=== PATIENT | female | born 1945 | race Caucasian/White ===

== ENCOUNTER 2018-08-06 07:54 | Day surgery (SDC) | payer OTHER ==
--- NOTE | 2018-08-03 09:59 | RAD REPORT ---
EXAM DESCRIPTION: RAD - Chest Pa And Lat (2 Views) - 08/03/2018 9:54 am CLINICAL HISTORY: preop Chest pain. COMPARISON: CHEST SINGLE VIEW dated 08/07/2012 FINDINGS: The lungs are clear. The heart is upper limit of normal in size. No displaced fractures. C holecystectomy clips. IMPRESSION: No acute or concerning finding suspected.
[2018-08-03 10:47] LABS: Absolute Lymphocytes (CBC) 3.2 K/uL (0.7-4.9); Absolute Monocytes 0.3 K/uL (0.1-1.3); Absolute Neutrophil 3.5 K/uL (1.8-8.0); Basophils % 0.9 % (0-1.3); Eosinophils % 2.5 % (0-4.4); Hematocrit 37.4 % (36.0-45.0); Lymphocytes % 44.6 % (15.3-44.8); MPV 9.7 fL (7.6-11.3); Monocytes % 4.3 % (3.3-12.3); RBC Red Blood Cell Count 4.54 M/uL (3.86-4.86)
[2018-08-03 10:53] LABS: Protime INR 0.93
[2018-08-03 10:56] LABS: Potassium 3.5 mmol/L (3.5-5.1)
--- OUTSIDE RECORDS SUMMARY | 2018-08-06 08:00 | XMS REPORT | Summary of Care ---
:1945 Author Name Herbie Astudillo M.D. Address [place] [facility] Unavailable , Care Team Providers Name Role Phone Herbie Astudillo M.D. Unavailable Unavailable ANNETTE ORELLANA MD Unavailable Unavailable ÁNGELA JAUREGUI [place], HERBIE Bonner Unavailable Unavailable Unavailable Unavailable Unavailable Functional Status Name Dates Details Functional status health issues are not documented Status: Name Dates Details Cognitive status health issues are not documented Status: Problems Name Dates Details Preventative health care (V70.0, Z00.00) Status: Active Symptomatic menopausal or female climacteric states (627.2, N95.1) Status: Active Acid reflux (530.81, K21.9) Status: Active Diabetic peripheral neuropathy (250.60, E11.42) Status: Active Colon polyps (211.3, K63.5) Status: Active Diabetes mellitus (250.00, E11.9) Status: Active Essential (primary) hypertension (401.9, I10) Status: Active Other hyperlipidemia (272.4, E78.49) Status: Active Medications Name Dates Details NexIUM 40 MG Oral Capsule Delayed Release TAKE ONE (1) CAPSULE(S) BY MOUTH ONCE A DAY. Quantity: 30 Refills: 5 Herbie Astudillo M.D. Start : 09-Nov-2016 Active Simvastatin 20 MG Oral Tablet TAKE 1 TABLET AT BEDTIME Quantity: 90 Refills: 3 eHrbie Astudillo M.D. Start : 17-Jul-2006 Active OneTouch UltraSoft Lancets Use 2-3 Lancets dailyAETNA RX ID# [id number] Quantity: 300 Refills: 3 Herbie Astudillo M.D. Start : 05-Jun-2007 Active metFORMIN HCl ER 500 MG Oral Tablet Extended Release 24 Hour TAKE FOUR (4) TABLET(S) BY MOUTH ONCE A DAY. Quantity: 360 Refills: 0 Herbie Astudillo M.D. Start : 30-May-2018 Active Calcium 600+D TABS TAKE 2 TABLET DAILY Refills: 0 R.N. Start : 11-Jul-2007 Active Aspirin 81 MG Oral Tablet Chewable USE DIRECTED. Refills: 0 R.N. Start : 10-Oct-2008 Active Multi For Her TABS Refills: 0 R.N. Start : 10-Oct-2008 Active Gabapentin 300 MG Oral Capsule TAKE ONE (1) CAPSULE(S) BY MOUTH TWICE A DAY. Quantity: 180 Refills: 0 Herbie Astudillo M.D. Start : 09-Jul-2018 Active Xalatan 0.005 % Ophthalmic Solution INSTILL 1 DROP IN BOTH EYES AT BEDTIME. Refills: 0 R.N. Start : 09-Mar-2012 Active OneTouch Delica Lancets 33G TEST TWO TO THREE (2 TO 3) TIMES PER DAY DIRECTED. Quantity: 2 Refills: 3 Herbie Astudillo M.D. Start : 24-Apr-2017 Active 100 Unit Box glipiZIDE ER 2.5 MG Oral Tablet Extended Release 24 Hour TAKE ONE (1) TABLET(S) BY MOUTH DAILY DIRECTED. Quantity: 90 Refills: 2 Herbie Atsudillo M.D. Start : 02-Sep-2013 Active Timolol Maleate 0.25 % Ophthalmic Solution INSTILL 1 DROP IN BOTH EYES EVERY 12 HOURS DAILY. Refills: 0 R.N. Start : 20-Nov-2013 Active OneTouch Verio In Vitro Strip USE 1 STRIP DAILY Quantity: 1 Refills: 4 Herbie Astudillo M.D. Start : 23-Oct-2015 Active 50 Strip Box OneTouch Verio In Vitro Strip USE ONCE A DAY. Quantity: 1 Refills: 2 Herbie Astudillo M.D. Start : 28-Jun-2018 Active 100 Strip Box Losartan Potassium-HCTZ 50-12.5 MG Oral Tablet TAKE ONE (1) TABLET(S) BY MOUTH ONCE A DAY. Quantity: 90 Refills: 0 Herbie Astudillo M.D. Start : 11-Dec-2017 Active Allergies and Adverse Reactions Name Dates Details Invokana TABS (Allergy) Status: Active Sulfa Drugs (Allergy) Status: Active Tolmetin Sodium CAPS (Allergy) Status: Active Past Medical History Name Dates Details History of Diabetes mellitus (250.00, E11.9) Status: Resolved History of esophageal reflux (V12.79, Z87.19) Status: Resolved Procedures Procedure Dates Details Procedures not documented Immunization Name Dates Details Influenza #1 on: 13-Jan-2006 Lot #: [id number] Influenza on: 10-Jan-2007 Lot #: [id number] Influenza #1 on: 18-Dec-2009 Lot #: [id number] Influenza on: 14-Apr-2015 Lot #: [id number] Social History Name Dates Details - Status: Name Dates Details Never smoker Vital Signs Date Test Result Details No Known Vitals to report Results Date Description Value Details :15 [[facility]] LIPID PANEL CHOLESTEROL, TOTAL 164 mg/dl (Normal) Range: <200 Comments: SPECIMEN RECEIVED DATE AND TIME: HDL CHOLESTEROL 52 mg/dl (Normal) Range: >50 Comments: SPECIMEN RECEIVED DATE AND TIME: TRIGLYCERIDES 165 mg/dl (Above high Range: <150 threshold) Comments: SPECIMEN RECEIVED DATE AND TIME: LDL-CHOLESTEROL 86 {MG/DL__CAL} (Normal) Comments: Reference range: <100 Desirable range <100 mg/dL for primary prevention; <70 mg/dL for patients with CHD or diabetic patients with > or=2 CHD risk factors. LDL-C is now calculated using the Jaskaran-Natalia calculation, which is a validated novel method providing better accuracy than the Friedewald equation in the estimation of LDL-C. Jaskaran SS et al. CONCEPCION. 2013;310(19): 7011-5797 (http://e ducation.Why Not Give Back/faq/PRO900)SPECIMEN RECEIVED DATE AND TIME : CHOL/HDLC RATIO 3.2 {CALC} (Normal) Range: <5.0 Comments: SPECIMEN RECEIVED DATE AND TIME: NON HDL CHOLESTEROL 112 {MG/DL__CAL} (Normal) Range: <130 Comments: For patients with diabetes plus 1 major ASCVD risk factor, treating to a non-HDL-C goal of <100 mg/dL (LDL-C of <70 mg/dL) is considered a therapeutic option.SPECIMEN RECEIVED DATE AND TIME: :15 [[facility]] MICROALBUMIN, RANDOM URINE Comments: Reference RangeNot established (W/CREATININE) CREATININE, RANDOM URINE 191 mg/dl (Normal) Range: 20-275 Comments: SPECIMEN RECEIVED DATE AND TIME: MICROALBUMIN 1.2 mg/dl (Normal) Comments: Reference RangeNot established MICROALBUMIN/CREATININE 6 {MCG/MG_CRE} (Normal) Range: <30 RATIO, RANDOM URINE Comments: The ADA defines abnormalities in albuminexcretion as follows: Category Result (mcg/mg creatinine) Normal <30Microalbuminuria 30-299 Clinical albuminuria > OR=3 00 The ADA recommends that at least two of threespecimens collected within a 3-6 month period beabnormal before considering a patient to bewithin a diagnostic category.SPECIMEN RECEIVED DATE AND TIME: [id number] 02-Aug-20189:15 [[facility]] CMP W/EGFR GLUCOSE 158 mg/dl (Above high Range: 65-99 threshold) Comments: Fasting reference interval For someone without known diabetes, a glucosevalue >125 mg/dL indicates that they may havediabetes and this should be confirmed with afollow-up test. UREA NITROGEN (BUN) 15 mg/dl (Normal) Range: 7-25 CREATININE 0.82 mg/dl (Normal) Range: 0.60-0.93 Comments: For patients >49 years of age, the reference limitfor Creatinine is approximately 13% higher for peopleidentified as -[place]. eGFR NON- 71 {ML/MIN/1.7} (Normal) Range: > OR=60 eGFR 83 {ML/MIN/1.7} (Normal) Range: > OR=60 BUN/CREATININE RATIO NOT APPLICABLE {CALC} Range: 6-22 SODIUM 138 mmol/L (Normal) Range: 135-146 POTASSIUM 3.8 mmol/L (Normal) Range: 3.5-5.3 CHLORIDE 97 mmol/L (Below low Range: 98-110 threshold) CARBON DIOXIDE 28 mmol/L (Normal) Range: 20-32 CALCIUM 9.4 mg/dl (Normal) Range: 8.6-10.4 PROTEIN, TOTAL 6.6 g/dl (Normal) Range: 6.1-8.1 ALBUMIN 3.9 g/dl (Normal) Range: 3.6-5.1 GLOBULIN 2.7 {G/DL__CALC} (Normal) Range: 1.9-3.7 ALBUMIN/GLOBULIN RATIO 1.4 {CALC} (Normal) Range: 1.0-2.5 BILIRUBIN, TOTAL 0.5 mg/dl (Normal) Range: 0.2-1.2 ALKALINE PHSPHATASE 50 u/l (Normal) Range: 33-130 AST 24 u/l (Normal) Range: 10-35 ALT 24 u/l (Normal) Range: 6-29 Comments: SPECIMEN RECEIVED DATE AND TIME: :15 [[facility]] CBC (INCLUDES DIFF/PLT) WHITE BLOOD CELL COUNT 6.9 {Thousand/u} (Normal) Range: 3.8-10.8 RED BLOOD CELL COUNT 4.78 {Million/uL} (Normal) Range: 3.80-5.10 HEMAGLOBIN 12.4 g/dl (Normal) Range: 11.7-15.5 HEMATOCRIT 39.2 % (Normal) Range: 35.0-45.0 MCV 82.0 fL (Normal) Range: 80.0-100.0 MCH 25.9 pg (Below low threshold) Range: 27.0-33.0 MCHC 31.6 g/dl (Below low Range: 32.0-36.0 threshold) RDW 13.7 % (Normal) Range: 11.0-15.0 PLATELET COUNT 255 {Thousand/u} (Normal) Range: 140-400 MPV 11.6 fL (Normal) Range: 7.5-12.5 ABSOLUTE NEUTROPHILS 3422 {cells/uL} (Normal) Range: 5297-1112 ABSOLUTE LYMPHOCYTES 2933 {cells/uL} (Normal) Range: 850-3900 ABSOLUTE MONOCYTES 352 {cells/uL} (Normal) Range: 200-950 ABSOLUTE EOSINOPHILS 152 {cells/uL} (Normal) Range: 15-500 ABSOLUTE BASOPHILS 41 {cells/uL} (Normal) Range: 0-200 NEUTROPHILS 49.6 % (Normal) LYMPHOCYTES 42.5 % (Normal) MONOCYTES 5.1 % (Normal) EOSINOPHILS 2.2 % (Normal) BASOPHILS 0.6 % (Normal) Comments: SPECIMEN RECEIVED DATE AND TIME: [[facility]] T4, FREE T4, FREE 1.4 ng/dl (Normal) Range: 0.8-1.8 Comments: SPECIMEN RECEIVED DATE AND TIME: 15 [[facility]] TSH, 3RD GENERATION Comments: REPORT COMMENT:FASTING:YES TSH 1.40 {MIU/L} (Normal) Range: 0.40-4.50 Comments: SPECIMEN RECEIVED DATE AND TIME: [id number] Plan of Care Name Dates Details Planned Observations Planned Goals not documented Planned Encounters Appointment; Herbie Astudillo M.D. On: 10-Aug-2018 9:15 Instructions Name Dates Details Instructions not documented Encounters Appointment; Herbie Astudillo M.D. On: 21-Oct-2016 10:45 Encounter Diagnosis: Problem not documented Appointment; Herbie Astudillo M.D. On: 21-Oct-2016 13:00 Encounter Diagnosis: Problem not documented Appointment; Herbie Asutdillo M.D. On: 21-Apr-2017 10:45 Encounter Diagnosis: Problem not documented Appointment; Herbie Astudillo M.D. On: 01-Sep-2017 10:45 Encounter Diagnosis: Problem not documented Appointment; Herbie Astudillo M.D. On: 02-Mar-2018 10:45 Encounter Diagnosis: Problem not documented Appointment; Herbie Astudillo M.D. On: 20-Apr-2018 9:15 Encounter Diagnosis: Problem not documented
[2018-08-06] MEDS ORDERED: NA CHLORIDE 0.9% 500 ML ONE (08:46)
[2018-08-06] MEDS ORDERED: FENTANYL CITR 100 MCG/2 ML ONE (09:20)
[2018-08-06] MEDS ORDERED: NA CHLORIDE 0.9% 50 ML ONE (09:20)
[2018-08-06] MEDS ORDERED: MIDAZOLAM HCL 2 MG/2 ML INJ ONE (09:20)
[2018-08-06] MEDS ORDERED: ATROPINE SULF 1 MG/10 ML SYR IV ONE (09:20)
[2018-08-06] MEDS ORDERED: HEPA 1000U/500MLS 2,000 UNIT/1,000 ML BAG IV ONE (09:21)
[2018-08-06] MEDS ORDERED: NITROGLYCERIN 100 MCG/ML SYR (for cath lab use only) IV ONE (09:21)
[2018-08-06] MEDS ORDERED: HEPARIN 5000 UNIT/ML 1 ML VIAL ONE (09:21)
[2018-08-06] MEDS ORDERED: NICARDIPINE HCL 25 MG/10 ML IV ONE (09:21)
[2018-08-06] MEDS ORDERED: LIDOCAINE 1% MPF 30 ML VIAL ONE (09:51)
[2018-08-06] MEDS ORDERED: METOPROLOL TARTRATE 5 MG/5 ML INJ IV ONE (10:11)
[2018-08-06] MEDS ORDERED: ASPIRIN 81 MG CHEWABLE TABLET ONE (10:30)
[2018-08-06] MEDS ORDERED: PRASUGREL (EFFIENT) 10 MG TAB ONE (10:31)
[2018-08-06] MEDS ORDERED: ZOLPIDEM TARTRATE 5 MG TABLET PO PRN (10:38)
[2018-08-06] MEDS ORDERED: GLUCAGON 1 MG/VIAL IM PRN (10:40)
[2018-08-06] MEDS ORDERED: D50W 25 GM/50 ML SYRINGE IV PRN (10:40)
[2018-08-06] MEDS: INSULIN -REGULAR HUMAN 50 UNIT/0.5 ML ML SQ SCH ×3 (11:59→20:44)
[2018-08-06] MEDS ORDERED: NA CHLORIDE 0.9% 1,000 ML IV SCH (13:00)
[2018-08-06] MEDS ORDERED: ACETAMINOPHEN 325 MG TABLET PO PRN (13:00)
[2018-08-06] MEDS ORDERED: NITROGLYCERIN 0.4 MG/TAB SL PRN (13:00)
[2018-08-06 13:54] VITALS: BMI 30.4
[2018-08-06] MEDS: GABAPENTIN 300 MG CAP PO SCH (20:44)
[2018-08-06] MEDS ORDERED: ATORVASTATIN 80 MG TAB PO SCH (21:00)
--- NOTE | 2018-08-06 21:42 | OP ---
Surgeon: Gilberto Rushing MD Automotive Lot Attendant: Yuly Romero. Family Doctor: Colin Ramos MD. Procedure: Left heart catheterization with coronary angiography and percutaneous coronary angioplast y with stent of a distal LAD 99% stenosis successful. Procedure Findings: The patient had evidence of unstable angina. Gave us informed consent. She was brought to the cardiac cathode builder in a fasting state. The findings are that she had mild CAD througho ut all her arteries. The arteries were very small. Left ventricular ejection fraction was normal, b ut there was apical hypokinesis on left ventricular angiography and within the LAD, there was a 99% d istal LAD stenosis after the second diagonal. After stenting, there was no residual stenosis. Procedure In Detail: The patient was brought to the cardiac cathode builder in a fasting state, sedated wit h Versed, fentanyl, prepared and draped in usual sterile fashion. Right radial approach was used. R ight radial artery entered with a 21-gauge needle, cannulated with a 0.021 inch diameter guidewire. A Terumo 6-Romansh sheath used. It was flushed and radial cocktail was given. We used 1% lidocaine t o anesthetize the skin around the right radial artery. We used a TIG catheter guided into the ascend ing aorta using a Terumo Glidewire fluoroscopy. We angiogram left ventricle, right coronary, left co ronary with this. We exchanged for an XBLAD 3.5 with side holes over an exchange length J-wire. We were able to cannulate the left main ostium nicely, it gave good support. We pre-dilated the lesion after crossing it with the Sacul wire with a 2.5 x 12 emerge. We then stented with a 2.5 x 16 Syner gy stent. The angiographic result was excellent. All balloons and wires were removed from the arter ies. Pictures were taken in orthogonal views and we removed the guide catheter, removed the sheath, and closed the arteriotomy using a TR band. Complications From The Procedure: None. Estimated Blood Loss: 20 cc. MADDY/KRZYSZTOF Voice ID: [id number] Report ID: [id number]
[2018-08-07 03:59] VITALS: O2SAT 99
[2018-08-07 05:59] LABS: Hematocrit 35.2 % (36.0-45.0); MPV 9.3 fL (7.6-11.3); RBC Red Blood Cell Count 4.31 M/uL (3.86-4.86)
[2018-08-07 06:14] LABS: Potassium 3.2 mmol/L (3.5-5.1)
[2018-08-07] MEDS ORDERED: PANTOPRAZOLE 40MG TABLET PO SCH (06:30)
[2018-08-07] MEDS ORDERED: POTASSIUM CL SA 10 MEQ TAB PO ONE (07:16)
[2018-08-07] MEDS: INSULIN -REGULAR HUMAN 50 UNIT/0.5 ML ML SQ SCH (07:30)
[2018-08-07] MEDS: GABAPENTIN 300 MG CAP PO SCH (07:50)
[2018-08-07] MEDS ORDERED: glipiZIDE 5 MG TAB PO SCH (08:00)
[2018-08-07 08:06] LABS: Urine Appearance CLEAR; Urine Bilirubin NEGATIVE (NEG); Urine Blood NEGATIVE (NEG); Urine Color YELLOW; Urine Glucose NEGATIVE (NEG); Urine Protein NEGATIVE (NEG); Urine Urobilinogen 0.2 mg/dL (0.2-1.0)
[2018-08-07 08:13] LABS: Urine Microscopic Reflex NO UMIC
[2018-08-07] MEDS ORDERED: CLOPIDOGREL 75 MG TABLET PO SCH (09:00)
[2018-08-07] MEDS ORDERED: hydroCHLOROthiazide 25 MG TAB PO SCH (09:00)
[2018-08-07] MEDS ORDERED: ASPIRIN EC 81 MG TAB PO SCH (09:00)
[2018-08-07] MEDS ORDERED: LOSARTAN POTASSIUM 50 MG TABLET PO SCH (09:00)
[2018-08-07 09:24] VITALS: BP 145/72; TEMP 98.3
--- NOTE | 2018-08-08 06:02 | DS ---
Date of Discharge: 08/07/2018 Discharge Diagnosis: Unstable angina pectoris due to 99% distal LAD stenosis, successfully treated with a stent. Secondary Diagnoses: Diabetes, hypertension, dyslipidemia. Medications On Discharge: Lipitor 80 mg once per day; aspirin 81 mg once per day; Plavix 75 mg once per day; Protonix 40 mg per day; metformin 1000 mg b.i.d. , but that will not start until August 09; gabapentin 300 b.i.d.; calcium citrate ; losartan 100 mg; hydrochlorothiazide 25 mg; timolol maleate eye drops; glipizide 2.5 mg daily. Followup: Will be in 2 weeks. Diet: Low-saturated fat, low-carbohydrate diet. Activity: Ad-luly, except no lifting more than 5 pounds with the right hand. Procedures In The Hospital: Left heart catheterization with coronary angiography,left ventricular angiography and percutaneous coronary angioplasty with stent of the distal LAD stenosis segment. STAN Voice ID: [id number] Report ID: [id number] ARMAAN
== END 2018-08-07 11:40 | disposition home or self-care (01) ==
LOC: CCL 07:54 → 4TH 10:33 → CCL 08-07 11:40
PROVIDERS: ATTEND Internal Medicine
DX: I25.110 Atherosclerotic heart disease of native coronary artery with unstable angina pectoris (principal); I10 Essential (primary) hypertension; E78.2 Mixed hyperlipidemia; E11.9 Type 2 diabetes mellitus without complications; Z88.2 Allergy status to sulfonamides; Z88.8 Allergy status to other drugs, medicaments and biological substances
CPT/HCPCS: 85025; 80048 ×2; 36415 ×2; 85610; 82962 ×6; 85347; 85730; 81003; 85027; 71046; 93458; C1893; C1725; C1877; C9600; J1644; J2250; J3010; J0583

== ENCOUNTER 2019-01-01 09:05 | Day surgery (SDC) | payer OTHER ==
[2019-01-01] MEDS ORDERED: NA CHLORIDE 0.9% 1,000 ML ONE (09:13)
[2019-01-01] MEDS ORDERED: PROPOFOL 200 MG/20 ML VIAL IV ONE (10:43)
--- NOTE | 2019-01-01 11:58 | ENDO RPT ---
[address], [address] EGD PROCEDURE REPORT EXAM DATE: 01/01/2019 PATIENT NAME: Queenie Tucker MR#: [id number] BIRTHDATE: 1945 ATTENDING: Karthikeyan Chen Dr STATUS: outpatient [employer] MATERIAL: Jay Gillis RN, Izzy Weaver, and Yara Sawyer RN INDICATIONS: The patient is a 73 yr old Female here for an EGD due to iron deficiency anemia, bloating, dyspepsia, and heartburn PROCEDURE PERFORMED: EGD with biopsy MEDICATIONS: Per Anesthesia. TOPICAL ANESTHETIC: none CONSENT: The patient understands the risks and benefits of the procedure and understands that these risks include, but are not limited to: sedation, allergic reaction, infection, perforation and/or bleeding. Alternative means of evaluation and treatment include, among others: physical exam, x-rays, and/or surgical intervention. The patient elects to proceed with this endoscopic procedure. DESCRIPTION OF PROCEDURE: During intra-op preparation period all mechanical medical equipment was checked for proper function. Hand hygiene and appropriate measures for infection prevention was taken. Procedure, possible complications, and alternatives including but not limited to the possibility of bleeding, perforation, tear, infection, sepsis, need for surgery, need for blood transfusion, and anesthesia related complications were explained to the patient. After the risks, benefits and alternatives of the procedure were thoroughly explained, Informed consent was verified, confirmed and timeout was successfully executed by the treatment team. The patient was placed in the left lateral position. The patient was anesthetized with topical anesthesia. Through the anesthetized oropharyngeal area, the scope was passed without any difficulty. The [id number] ([id number]) endoscope was introduced through the mouth and advanced to the second portion of the duodenum. Retroflexed views revealed a small hiatal hernia. The gastroscope was then slowly withdrawn and removed. A small hiatal hernia was found Mild gastritis was found in the body of the stomach. Multiple biopsies were obtained and sent to pathology. Notching of the small bowel folds was found in the descending duodenum. Multiple biopsies were obtained and sent to pathology. 6 mm flat white polyp was found in the descending duodenum. With jumbo forceps, a biopsy was obtained and sent to pathology. ADVERSE EVENTS: There were no complications. IMPRESSIONS: 1. Small hiatal hernia 2. Mild gastritis in the body of the stomach, s/p biopsy 3. Notching of the small bowel folds in the descending duodenum, s/p biopsies (limited due to patient on ASA/Plavix) 4. 6 mm flat white polyp in the descending duodenum, s/p biopsy RECOMMENDATIONS: 1. await biopsy results 2. acid suppression therapy REPEAT EXAM: Karthikeyan Chen Dr eSigned: Karthikeyan Chen Dr 01/01/2019 11:57 AM cc: Colin Ramos CPT CODES: ICD9 CODES: PATIENT NAME: Queenie Tucker MR#: [id number]
[2019-01-01 12:40] VITALS: O2SAT 97
[2019-01-01 12:41] VITALS: BP 141/55; TEMP 97.7
--- NOTE | 2019-01-01 15:00 | RAD REPORT ---
EXAM DESCRIPTION: RAD - Small Bowel Series - 01/01/2019 2:55 pm CLINICAL HISTORY: s/p egd Abdominal pain COMPARISON: No comparisons FINDINGS: Hospital Fellow film shows a nonspecific bowel gas pattern. No obstruction or free air. No suspiciou s calcifications. Cholecystectomy clips. Gastric size and mucosal fold pattern are normal. No delay in transit of contrast into the small josh l. Small bowel is normal in diameter with no mucosal fold thickening. No intrinsic or extrinsic mass identifiable. Terminal ileum has normal appearance. Transit time to the colon is normal. No fluoroscopy was performed. Total images acquired: 9 IMPRESSION: Normal small bowel series.
== END 2019-01-01 14:50 | disposition home or self-care (01) ==
LOC: OR 09:05
PROVIDERS: ATTEND Internal Medicine Gastroenterology
PROC: 0DB68ZX Excision of Stomach, Via Natural or Artificial Opening Endoscopic, Diagnostic (ICD-10-PCS; 2019-01-01)
PROC: 0DB98ZX Excision of Duodenum, Via Natural or Artificial Opening Endoscopic, Diagnostic (ICD-10-PCS; principal; 2019-01-01 11:15)
DX: K29.50 Unspecified chronic gastritis without bleeding (principal); D13.2 Benign neoplasm of duodenum; K44.9 Diaphragmatic hernia without obstruction or gangrene; K21.9 Gastro-esophageal reflux disease without esophagitis; D50.9 Iron deficiency anemia, unspecified; E11.9 Type 2 diabetes mellitus without complications; I10 Essential (primary) hypertension; H40.9 Unspecified glaucoma; Z86.010 Personal history of colon polyps; Z79.82 Long term (current) use of aspirin; Z79.02 Long term (current) use of antithrombotics/antiplatelets; Z88.2 Allergy status to sulfonamides; Z90.710 Acquired absence of both cervix and uterus
CPT/HCPCS: 36415; 88312; 82962; 88305; 74250; 43239; J2704; J7030

== ENCOUNTER 2021-10-03 13:02 | Emergency (ER) | payer OTHER ==
--- NOTE | 2021-10-03 14:14 | RAD REPORT ---
EXAM DESCRIPTION: RAD - Hand Right 3 View - 10/03/2021 2:06 pm CLINICAL HISTORY: PAIN COMPARISON: No comparisons FINDINGS: Disc space narrowing with multiple small erosions are present particularly notable in the DIP joints of the fingers. The MCP joint involvement is also present with small erosive changes also present in the carpal bones. The findings favor inflammatory arthropathy. No acute fracture or sublux ation.
--- NOTE | 2021-10-03 14:30 | EDPHYS ---
Physician Documentation [facility] Name: Queenie Tucker Age: 75 yrs Sex: Female : 1945 Arrival Date: 10/03/2021 Time: 13:05 Bed 12 Private MD: Colin Ramos T ED Physician Aron Rodriguez HPI: 10/03 13:28 This 75 yrs old Female presents to ER via Ambulatory with complaints of Hand Swelling. kb 13:28 The patient or guardian reports pain, swelling, tenderness. The complaints affect the kb right hand. Context: The problem was sustained outdoors, resulted from a fall, while walking. Onset: The symptoms/episode began/occurred yesterday. Modifying factors: The symptoms are alleviated by nothing, the symptoms are aggravated by movement. Associated signs and symptoms: The patient has no apparent associated signs or symptoms. Severity of symptoms: At their worst the symptoms were moderate, in the emergency department the symptoms are unchanged. The patient has not experienced similar symptoms in the past. The patient has not recently seen a physician. Pt states she was camping and fell on Monday. Comes in today for pain, swelling and redness to right hand. Historical: - Allergies: 13:14 tolmetin; iw - PMHx: 13:14 Hypertensive disorder; Diabetes mellitus; iw - PSHx: 13:14 heart stent; iw 13:15 section; hysterectomy; iw - Immunization history:: Adult Immunizations up to date. - Social history:: Smoking status: . ROS: 13:26 Constitutional: Negative for fever, chills, and weight loss. kb 13:26 MS/extremity: Positive for erythema, pain, swelling, tenderness, of the right hand. 13:26 All other systems are negative. Exam: 13:26 Constitutional: This is a well developed, well nourished patient who is awake, alert, kb and in no acute distress. Head/Face: Normocephalic, atraumatic. ENT: Moist Mucous membranes Respiratory: Respirations even and unlabored. No increased work of breathing. Talking in full sentences Neuro: Awake and alert, GCS 15, oriented to person, place, time, and situation. Moves all extremities. Normal gait. Psych: Awake, alert, with orientation to person, place and time. Behavior, mood, and affect are within normal limits. 13:26 Musculoskeletal/extremity: Extremities: grossly normal except: noted in the right hand: erythema, pain, swelling, tenderness, ROM: intact in all extremities, Circulation is intact in all extremities. Sensation intact. 13:26 Skin: cellulitis, that is mild, on the right hand. Vital Signs: 13:12 BP 120 / 86; Pulse 99; Resp 16 S; Temp 98.0; Pulse Ox 97% on R/A; Weight 72.57 kg; iw Height 5 ft. 3 in. (160.02 cm); 13:26 BP 118 / 57; Pulse 92; Resp 18; Temp 97.6(T); Pulse Ox 98% on R/A; Pain 10/10; eh3 14:47 BP 128 / 58; Pulse 76; Resp 20; Pulse Ox 100% on R/A; bh1 13:12 Body Mass Index 28.34 (72.57 kg, 160.02 cm) iw MDM: 13:11 Patient medically screened. kb 13:28 Data reviewed: vital signs, nurses notes. Data interpreted: Pulse oximetry: on room air kb is 97 %. Interpretation: normal. 14:26 ED course: No puncture or other open wound to right hand. kb 14:29 Data reviewed: I have discussed the patient's presentation/case with the attending Emergency Department Physician;. Counseling: I had a detailed discussion with the patient and/or guardian regarding: the historical points, exam findings, and any diagnostic results supporting the discharge/admit diagnosis, radiology results, the need for outpatient follow up, a family practitioner, to return to the emergency department if symptoms worsen or persist or if there are any questions or concerns that arise at home. 10/03 13:14 Order name: Hand Right 3 View XRAY; Complete Time: 14:15 kb Administered Medications: 14:40 Drug: Bactrim (trimethoprim-sulfamethoxazole) (160 mg-800 mg (DS) 1 tablet Route: PO; 1 14:46 Follow up: Response: No adverse reaction 1 14:40 Drug: KeFLEX (cephalexin) 500 mg Route: PO; bh1 14:46 Follow up: Response: No adverse reaction 1 14:40 Drug: traMADol 50 mg Route: PO; 1 14:46 Follow up: Response: No adverse reaction [facility] Disposition: 17:04 Co-signature as Attending Physician, Aron Rodriguez MD. rn Disposition Summary: 10/03/21 14:30 Discharge Ordered Location: Home kb Condition: Stable kb Diagnosis - Cellulitis of right upper limb - hand kb Followup: kb - With: Emergency Department - When: As needed - Reason: Worsening of condition Followup: kb - With: Private Physician - When: 2 - 3 days - Reason: Recheck today's complaints, Continuance of care, Re-evaluation by your physician Discharge Instructions: - Discharge Summary Sheet kb - Cellulitis, Adult, [id number] kb Forms: - Medication Reconciliation Form kb - Thank You Letter kb - Antibiotic Education kb - Prescription Opioid Use kb Prescriptions: - Cephalexin 500 mg Oral Capsule - take 1 capsule by ORAL route every 8 hours for 10 days; 30 capsule; Refills: 0, kb Product Selection Permitted - Bactrim DS 800-160 mg Oral Tablet - take 1 tablet by ORAL route every 12 hours for 10 days; 20 tablet; Refills: 0, kb Product Selection Permitted Signatures: Dispatcher [employer] Leny Amador, THREADER OPERATOR-C THREADER OPERATOR-Jenna Leonardo, RN Aron Bonilla MD MD rn Hicks, Barbara, RN RN [facility]
--- NOTE | 2021-10-03 14:30 | ER ---
Nurse's Notes [facility] Name: Queenie Tucker Age: 75 yrs Sex: Female : 1945 Arrival Date: 10/03/2021 Time: 13:05 Bed 12 Private MD: Colin Ramos T Diagnosis: Cellulitis of right upper limb-hand Presentation: 10/03 13:12 Chief complaint: Patient states: right hand pain and swelling, hot to touch, fell on iw Monday while camping. Coronavirus screen: At this time, the client does not indicate any symptoms associated with coronavirus-19. Ebola Screen: Patient negative for fever greater than or equal to 101.5 degrees Fahrenheit, and additional compatible Ebola Virus Disease symptoms Patient denies exposure to infectious person. Patient denies travel to an Ebola-affected area in the 21 days before illness onset. No symptoms or risks identified at this time. Initial Sepsis Screen: Does the patient meet any 2 criteria? No. Patient's initial sepsis screen is negative. Does the patient have a suspected source of infection? No. Patient's initial sepsis screen is negative. Risk Assessment: Do you want to hurt yourself or someone else? Patient reports no desire to harm self or others. Onset of symptoms was September 29, 2021. 13:12 Method Of Arrival: Ambulatory iw 13:12 Acuity: WALI 3 iw Triage Assessment: 14:48 General: Appears in no apparent distress. Behavior is calm, cooperative, appropriate bh1 for age. Historical: - Allergies: 13:14 tolmetin; iw - PMHx: 13:14 Hypertensive disorder; Diabetes mellitus; iw - PSHx: 13:14 heart stent; iw 13:15 section; hysterectomy; iw - Immunization history:: Adult Immunizations up to date. - Social history:: Smoking status: . Screenin:21 Abuse screen: Denies threats or abuse. Nutritional screening: No deficits noted. 1 Tuberculosis screening: No symptoms or risk factors identified. Fall Risk None identified. Assessment: 13:21 Pain: Complains of pain in right hand. Musculoskeletal: No deficits noted. 1 13:34 Pain: Complains of pain in medial aspect of right hand and dorsum of right hand Pain eh3 does not radiate. Pain currently is 10 out of 10 on a pain scale. Quality of pain is described as burning, aching, throbbing, Pain began 2-3 days ago. Is continuous, Also complains of no other associated symptoms. Vital Signs: 13:12 BP 120 / 86; Pulse 99; Resp 16 S; Temp 98.0; Pulse Ox 97% on R/A; Weight 72.57 kg; iw Height 5 ft. 3 in. (160.02 cm); 13:26 BP 118 / 57; Pulse 92; Resp 18; Temp 97.6(T); Pulse Ox 98% on R/A; Pain 10/10; eh3 14:47 BP 128 / 58; Pulse 76; Resp 20; Pulse Ox 100% on R/A; bh1 13:12 Body Mass Index 28.34 (72.57 kg, 160.02 cm) iw ED Course: 13:05 Patient arrived in ED. am2 13:05 Colin Ramos MD is Private Physician. am2 13:06 Leny Vega FNP-C [facility]. kb 13:06 Aron Rodriguez MD is Attending Physician. kb 13:13 Triage completed. iw 13:15 Arm band placed on. iw 13:18 Oliva Mike, RN is Primary Nurse. bh1 13:21 No apparent distress. Resting quietly. Awaiting ED provider evaluation. bh1 13:21 Patient has correct armband on for positive identification. Pulse ox on. NIBP on. bh1 13:21 No provider procedures requiring assistance completed. Patient did not have IV access bh1 during this emergency room visit. 14:08 Hand Right 3 View XRAY In Process Unspecified. EDMS Administered Medications: 14:40 Drug: Bactrim (trimethoprim-sulfamethoxazole) (160 mg-800 mg (DS) 1 tablet Route: PO; bh1 14:46 Follow up: Response: No adverse reaction bh1 14:40 Drug: KeFLEX (cephalexin) 500 mg Route: PO; bh1 14:46 Follow up: Response: No adverse reaction bh1 14:40 Drug: traMADol 50 mg Route: PO; bh1 14:46 Follow up: Response: No adverse reaction 1 Medication: 13:21 VIS not applicable for this client. bh1 Outcome: 14:30 Discharge ordered by . kb 14:47 Discharged to home ambulatory. 1 14:47 Condition: good 14:47 Discharge instructions given to patient, family, Instructed on discharge instructions, follow up and referral plans. medication usage, Demonstrated understanding of instructions, follow-up care, medications, Prescriptions given X 2. 14:48 Patient left the ED. bh1 Signatures: Dispatcher [employer] EDMS Leny Vega, STEAM FITTER HELPER-C STEAM FITTER HELPER-Ckb Jenna Quigley, RN RN Oralia Sen [facility] Karena Mcneil 3 Oliva Mike RN RN 1 Corrections: (The following items were deleted from the chart) 13:14 13:12 Acuity: WALI 4 iw iw 13:15 13:12 Pulse 99bpm; Resp 16bpm; Spontaneous; Pulse Ox 97% RA; Temp 98.0F; iw iw
[2021-10-03] MEDS ORDERED: SMZ./TMP. 800/160 MG TABLET ONE (14:49)
[2021-10-03] MEDS ORDERED: CEPHALEXIN 250 MG CAP ONE (14:49)
[2021-10-03] MEDS ORDERED: TRAMADOL HCL 50 MG TAB ONE (14:49)
[2021-10-03 14:54] VITALS: TEMP 97.6
[2021-10-03 14:55] VITALS: BP 128/58; O2SAT 100
== END 2021-10-03 14:48 | disposition home or self-care (01) ==
LOC: ER 13:02
DX: L03.113 Cellulitis of right upper limb (principal); E11.9 Type 2 diabetes mellitus without complications; I10 Essential (primary) hypertension; Z95.818 Presence of other cardiac implants and grafts; Z88.8 Allergy status to other drugs, medicaments and biological substances
CPT/HCPCS: 99284